=== PATIENT | male | born 1975 | race Caucasian/White ===

== ENCOUNTER 2017-07-27 14:08 | Emergency (ER) | payer BC ==
[2017-07-27] MEDS ORDERED: KETOROLAC 60 MG/2 ML VIAL IM STA (15:25)
--- NOTE | 2017-07-27 15:30 | ED ---
General Adult HPI - General Chief complaint: Abdominal Pain Stated complaint: Abd Pain Time Seen by Provider: 07/27/17 15:07 Source: patient, family, RN notes reviewed Mode of arrival: ambulatory - History of Present Illness Initial comments: 42-year-old male presents to the emergency department with a chief complaint of left-sided upper abdominal pain. Patient states he had a cough home mouth and he had pain the left side. Patient states if he sits still he has no pain with coughs or takes a deep breath or gets about or twists or bends he has pain to the left side. Patient states there is no shortness of breath with this. Patient states that if he touches his muscles he has some discomfort. Patient was concerned due to his symptoms without that he should be evaluated. Patient denies any recent fever, chills, shortness of breath, chest pain, back pain, nausea vomiting, numbness or tingling, dysuria or hematuria, constipation or diarrhea, headaches or visual changes, or any other current symptoms. - Related Data Home Medications Medication Instructions Recorded Confirmed No Known Home Medications [No 07/27/17 07/27/17 Known Home Medications] Allergies Allergy/AdvReac Type Severity Reaction Status Date / Time No Known Allergies Allergy Verified 07/27/17 14:55 Review of Systems ROS Statement: Those systems with pertinent positive or pertinent negative responses have been documented in the HPI. ROS Other: All systems not noted in ROS Statement are negative. Past Medical History Past Medical History: No Reported History History of Any Multi-Drug Resistant Organisms: None Reported Past Surgical History: No Surgical Hx Reported Past Psychological History: No Psychological Hx Reported Smoking Status: Never smoker Past Alcohol Use History: Occasional Past Drug Use History: None Reported General Exam - General Exam Comments Initial Comments: General: The patient is awake and alert, in no distress, and does not appear acutely ill. Eye: Pupils are equal, round and reactive to light, extra-ocular movements are intact; there is normal conjunctiva bilaterally. No signs of icterus. Ears, nose, mouth and throat: There are moist mucous membranes and no oral lesions. Neck: The neck is supple, there is no tenderness. Cardiovascular: There is a regular rate and rhythm. No murmur, rub or gallop is appreciated. Respiratory: Lungs are clear to auscultation, respirations are non-labored, breath sounds are equal. No wheezes, stridor, rales, or rhonchi. Gastrointestinal: Soft, non-distended, non-tender abdomen without masses or organomegaly noted. There is no rebound or guarding present. No CVA tenderness. Bowel sounds are unremarkable. Back: There is no tenderness to palpation in the midline. There is no obvious deformity. No rashes noted. Musculoskeletal: Normal ROM, no tenderness, There is no pedal edema. There is no calf tenderness or swelling. Sensation intact. Pulses equal bilaterally 2+. Neurological: CN II-XII intact, There are no obvious motor or sensory deficits. Coordination appears grossly intact. Speech is normal. Skin: Skin is warm and dry and no rashes or lesions are noted. Psychiatric: Cooperative, appropriate mood & affect, normal judgment. Course Vital Signs 07/27/17 14:21 Temperature 98.1 F Pulse Rate 78 Respiratory 18 Rate Blood Pressure 175/97 O2 Sat by Pulse 100 Oximetry Medical Decision Making - Medical Decision Making 42-year-old male presents emergency Department chief complaint of tenderness of the abdomen after a cough. This time patient's chest x-ray was reviewed. At this time there does not appear to be acute abdomen on a. We did discuss blood work additional workup to further evaluate this pain that started suddenly after coughing. He states that he feels as if it musculoskeletal. He states that he feels better chest x-ray is normal. He states that he does not want to have this workup. We discussed this could be a more full workup to ensure that there is no other concerning etiologies. Patient stated he understood he is going to watch the pain and changes or worsens he will return the emergency department. We did discuss return parameters and close follow-up. He stated that he understood he is given plan. He will be discharged. - Radiology Data Radiology results: report reviewed, image reviewed Disposition Clinical Impression: Muscle strain, Abdominal pain Disposition: HOME SELF-CARE Condition: Stable Instructions: Muscle Strain (ED) Additional Instructions: Please use medication as discussed. Please follow up with family doctor if symptoms have not improved over the next two days. Please return to the emergency room if your symptoms increase or worsen or for any other concerns. Referrals: Ming King MD [Primary Care Provider] - 1-2 days Time of Disposition: 15:56
--- NOTE | 2017-07-27 15:39 | XR ---
EXAMINATION TYPE: XR chest 2V DATE OF EXAM: 07/27/2017 COMPARISON: NONE TECHNIQUE: PA and lateral views submitted. HISTORY: Cough FINDINGS: The lungs are clear and there is no pneumothorax, pleural effusion, or focal pneumonia. Subsegmenta l linear changes at the lung bases. Biapical pleural thickening. No overt failure. IMPRESSION: 1. Linear changes at the lung bases more typical of atelectasis. Reduced inspiration. Correlate clini tamar..
[2017-07-27 16:12] VITALS: BP 132/78; PULSE 73; RESP 20; TEMP 97.8
--- NOTE | 2017-07-31 04:17 | CDI ---
Dear Lucinda Ingram PA-C: Please do addendum site specification for Muscle strain. Thank you, Desean Morataya, [employer]. If you have any questions, please contact District Plant Supervisor at [phone]. [facility]
--- NOTE | 2017-08-11 12:33 | ED ---
Disposition Clinical Impression: Muscle strain, Abdominal pain, Abdominal wall strain Disposition: HOME SELF-CARE Condition: Stable Instructions: Muscle Strain (ED) Additional Instructions: Please use medication as discussed. Please follow up with family doctor if symptoms have not improved over the next two days. Please return to the emergency room if your symptoms increase or worsen or for any other concerns. Referrals: Ming King MD [Primary Care Provider] - 1-2 days
== END 2017-07-27 16:15 | disposition home or self-care (01) ==
LOC: EC 14:08
DX: S39.011A Strain of muscle, fascia and tendon of abdomen, initial encounter (principal); R05 Cough; X58.XXXA Exposure to other specified factors, initial encounter
CPT/HCPCS: 99284; 96372; 71020; J1885